=== PATIENT | male | born 1955 | race Two or more races ===

== ENCOUNTER 2018-02-18 21:23 | Emergency (ER) | payer OTHER ==
[~2018-02-18] VITALS: Ht 167.6 cm; Wt 56.7 kg
[~2018-02-18 21:23] MED LIST: CORGARD40 MG PO; KETO10TA2 PO; LEVAQUIN750 MG PO; MEDROLPACK PO; NORFLEX100MG PO; PROVENTIL3 ML/2.5 M IH; TOPROL XL25 M1; ZYNCOF 20-400120 ML PO
== END 2018-02-19 03:54 | disposition home or self-care (01) ==
LOC: ER 21:23
DX: B34.9 Viral infection, unspecified (principal); J11.1 Influenza due to unidentified influenza virus with other respiratory manifestations

== ENCOUNTER 2019-01-11 08:23 | Outpatient (CLI) | payer OTHER | END 2019-01-11 08:25 | disposition home or self-care (01) | LOC: SONOGRAMA 08:23 → MAMO-SONO 11:15 | DX: C18.2 Malignant neoplasm of ascending colon (principal) ==

== ENCOUNTER 2019-01-11 09:23 | Outpatient (CLI) | payer OTHER | END 2019-01-11 10:00 | disposition home or self-care (01) | LOC: NUCLEAR 09:23 | DX: B20 Human immunodeficiency virus [HIV] disease (principal); F52.21 Male erectile disorder; I10 Essential (primary) hypertension; M75.112 Incomplete rotator cuff tear or rupture of left shoulder, not specified as traumatic; G47.00 Insomnia, unspecified; M54.41 Lumbago with sciatica, right side; L20.89 Other atopic dermatitis; A53.9 Syphilis, unspecified; K21.0 Gastro-esophageal reflux disease with esophagitis; K12.39 Other oral mucositis (ulcerative); I70.71 Atherosclerosis of other type of bypass graft(s) of the extremities with intermittent claudication; I87.2 Venous insufficiency (chronic) (peripheral) ==

== ENCOUNTER → 2019-01-19 | Outpatient (CLI) | payer OTHER | END | disposition home or self-care (01) | LOC: NUCLEAR 12-29 08:30 | DX: I20.0 Unstable angina (principal) ==

== ENCOUNTER 2019-03-05 07:25 | Outpatient (CLI) | payer OTHER | END 2019-03-05 07:32 | disposition home or self-care (01) | LOC: TOM 07:25 | DX: K62.1 Rectal polyp (principal) | CPT/HCPCS: 74177; Q9965 ==

== ENCOUNTER 2019-03-12 11:08 | Outpatient (CLI) | payer OTHER | END 2019-03-12 14:27 | disposition home or self-care (01) | LOC: RAD 11:08 | DX: M54.2 Cervicalgia (principal) ==

== ENCOUNTER 2019-07-03 20:59 | Emergency (ER) | payer OTHER ==
[~2019-07-03] VITALS: Ht 175.3 cm; Wt 62.6 kg
[2019-07-04] MEDS ORDERED: LEVAQUIN750 MG PO (09:59)
== END 2019-07-04 10:42 | disposition home or self-care (01) ==
LOC: ER 20:59
DX: J16.8 Pneumonia due to other specified infectious organisms (principal)

== ENCOUNTER 2019-09-17 07:45 | Outpatient (CLI) | payer OTHER | END 2019-09-17 07:47 | disposition home or self-care (01) | LOC: SONOGRAMA 07:45 | DX: R10.13 Epigastric pain (principal) ==

== ENCOUNTER 2019-10-08 22:43 | Emergency (ER) | payer OTHER ==
[~2019-10-08] VITALS: Ht 175.3 cm; Wt 61.2 kg
[2019-10-08] MEDS ORDERED: TESSALON PERLE100 M1 PO (22:57)
[2019-10-08] MEDS ORDERED: PROMETH-CODEIN 65 ML PO (22:57)
[2019-10-08] MEDS ORDERED: ZITHROMAX500 MG PO (22:57)
== END 2019-10-08 23:52 | disposition home or self-care (01) ==
LOC: ER 22:43
DX: J06.9 Acute upper respiratory infection, unspecified (principal)

== ENCOUNTER 2019-12-20 08:56 | Outpatient (CLI) | payer OTHER ==
[~2019-12-20 08:56] MED LIST changes: +PROMETH-CODEIN 65 ML PO; +TESSALON PERLE100 M1 PO; +ZITHROMAX500 MG PO
== END 2019-12-20 08:59 | disposition home or self-care (01) ==
LOC: NUCLEAR 08:56
DX: I87.2 Venous insufficiency (chronic) (peripheral) (principal)

== ENCOUNTER 2020-03-31 11:50 | Emergency (ER) | payer OTHER ==
[~2020-03-31] VITALS: Ht 175.3 cm; Wt 63.5 kg
[2020-03-31] MEDS ORDERED: ORPHENADRINE C100 MG PO (14:36)
== END 2020-03-31 17:09 | disposition home or self-care (01) ==
LOC: ER 11:50
DX: M79.18 Myalgia, other site (principal); M54.5 Low back pain; I10 Essential (primary) hypertension

== ENCOUNTER 2020-05-16 11:53 | Outpatient (CLI) | payer OTHER ==
[~2020-05-16 11:53] MED LIST changes: +ORPHENADRINE C100 MG PO
== END 2020-05-16 12:04 | disposition home or self-care (01) ==
LOC: SONOGRAMA 11:53 → RAD 11:53
PROVIDERS: ATTEND Specialist
DX: M43.04 Spondylolysis, thoracic region (principal); M47.812 Spondylosis without myelopathy or radiculopathy, cervical region; S46.911A Strain of unspecified muscle, fascia and tendon at shoulder and upper arm level, right arm, initial encounter

== ENCOUNTER 2020-05-23 13:11 | Outpatient (CLI) | payer OTHER | END 2020-05-23 13:17 | disposition home or self-care (01) | LOC: MRI 13:11 | PROVIDERS: ATTEND Specialist | DX: M47.22 Other spondylosis with radiculopathy, cervical region (principal); M50.222 Other cervical disc displacement at C5-C6 level | CPT/HCPCS: 72141 ==

== ENCOUNTER 2020-06-11 18:07 | Inpatient (IN) | payer OTHER ==
[~2020-06-11] VITALS: Ht 175.3 cm; Wt 62.6 kg
[2020-06-11] MEDS ORDERED: AMBIEN5 MG (18:22)
[2020-06-11] MEDS ORDERED: BARACLUDE0.5 MG (18:24)
[2020-06-11] MEDS ORDERED: [UNRECOGNIZED DRUG - OTHER] (18:24)
--- NOTE | 2020-06-11 18:34 | NUR ---
PTE REFIERE HEMOGLOBINA EN 6 SE LUCITA S/V Y SE UBICA EN AREA DE OBSERVACION
--- NOTE | 2020-06-11 21:48 | NUR ---
SE RECIBE PTE ALERTA Y ORIENTADO X3, EN FELICIA CON BARANDAS ELEVADAS. SE RECIBE PTE CANALIZA EN MANO JASON AREA GRETCHEN DE EDEMA Y DE ENROJECIMIENTO. SE LE LUCITA TUBOS PILOTOS PARA ORDEN DE TRANSFUNDIR 3 UNIDADES PRBC. LOS CUALES SE ENTREGAN A MR. CORDERO DE BANCO DE SHAUN. SE LE REALIZA EKG IVONE ORDEN MEDICA. PTE FIRMA CONSENTIMIENTO DE TRANSFUSION DE SHAUN. PTE SE MANTIENE BAJO OBSERVACION POR CAMBIOS.
--- NOTE | 2020-06-12 | NUR ---
PT ALERTA Y ORIENTADO X3 ESFERAS SE RECIBE EN FELICIA CON BARANDAS ELEVADAS Y FRENOS COLOCADOS. 0.45NSS AT 150 ML/HRS BAJANDO POR REGULADOR. HEPARIN LOCK ADICIONAL, PATENTE GRETCHEN DE EDEMA Y/O ERITEMA. PENDIENTE A TRANSFUNDIR 3 UNIDADES PRBCS. DOCUMENTO DE CONSENTIMIENTO PARA TRANSFUNDIR SHAUN Y AYAAN DERIVADOS. 100AM- SE LLAMA A LABORATORIO DE PRESBY PARA NAS SEGUIMIENTO A PRBCS ORDENADOS. MS RUFFIN REFIERE NO HAY DISPONIBILIDAD. ANADE EN TURNO 3-11 DE CHAMP LO QUE SE TENIA DISPONIBLE ERA TIPO (O) NO EL COMPONENTE DE CRUCE DE PT: TIPO (A). EL DR HOOK NO AUTORIZA TRANSFUNDIR COMPONENTES ALTERNOS. 130AM- SE LLAMA A BANCO DE SHAUN, SE HABLA CON MS SRINIVASA QUIEN REFIERE TUBOS DE SHAUN Y REQUISIONES SE ENCUENTRAN EN PRESBY, NO SE LIZETTE A PEDIR EL CRUCE TIPO A DEL PT. SUHAIL BERNABE REFIERE TENER DISPONIBLE, IRA SE DEBEN DE REALIZAR TODO EL PROCESO DE REQUISICION Y DARYL TUBOS PILOTOS. 145AM- SE LLAMA A BANCO DE SHA[place] PARA RECOGER TUBOS PILOTOS.
--- NOTE | 2020-06-12 04:43 | NUR ---
PERSONAL DE BANCO DE SHAUN RECOGE REQUISION Y TUBOS DE SHAUN.
--- NOTE | 2020-06-12 07:47 | NUR ---
PACIENTE ALERTA Y ORIENTADO EN AYAAN VICKIE ESFERAS CON BUEN PATRON RESPIRATORIO Y PIEL TIBIA AL TACTO. SE OBSERVA H/L PATENTE GRETCHEN DE EDEMA Y ENROJECIMIENTO BAJANDO UN .45NSS @ 150ML/HR. PENDIENTE CONSULTA CON DR Ernesto ANTOINE. PENDIENTE DISPONIBILIDAD DE 3 UNIDADES DE PRBC'S. SE MANTIENE BAJO OBSERVACION POR CAMBIOS.
--- NOTE | 2020-06-12 08:30 | NUR ---
SE ORIENTA A PACIENTE SOBRE UNIDADES DE PRBC'S DISPONIBLES Y SE PROCEDE A LA CHETAN DE VITALES. PACIENTE REFIERE QUIERE DESAYUNAR ANTES DE COMENZAR LA TRANSFUSION. SE ORIENTA SOBRE EL MISMO. PENDIENTE A COMENZAR LA TRANSFUSION LUEGO DEL DESAYUNO, SE LLAMA [place] AL DPT DE DIETA.
[2020-06-13] MEDS ORDERED: VEMLIDY25 MG (15:51)
[2020-06-17] MEDS ORDERED: PROTONIX40 MG PO (09:29)
== END 2020-06-17 10:43 | disposition home or self-care (01) | DRG 384 ==
LOC: ER 18:07 → MEDI 06-12 09:35 → SEC-K 06-12 09:35 → MEDI 06-12 10:29
PROVIDERS: ADMIT Internal Medicine; ATTEND Internal Medicine
PROC: 30233N1 Transfusion of Nonautologous Red Blood Cells into Peripheral Vein, Percutaneous Approach (ICD-10-PCS; 2020-06-12)
PROC: 0DB68ZX Excision of Stomach, Via Natural or Artificial Opening Endoscopic, Diagnostic (ICD-10-PCS; principal; 2020-06-16)
DX: K25.3 Acute gastric ulcer without hemorrhage or perforation (principal); D62 Acute posthemorrhagic anemia; B20 Human immunodeficiency virus [HIV] disease; K92.0 Hematemesis; I10 Essential (primary) hypertension; R06.02 Shortness of breath; D69.6 Thrombocytopenia, unspecified

== ENCOUNTER → 2020-11-05 | Emergency (ER) | payer OTHER ==
[~2020-11-05] VITALS: Ht 175.3 cm; Wt 63.0 kg
[~2020-11-05] MED LIST changes: +AMBIEN5 MG; +BARACLUDE0.5 MG; +CARAFATE1 GM PO; +PEPCID20 MG PO; +PROTONIX40 MG PO; +VEMLIDY25 MG; +[UNRECOGNIZED DRUG - OTHER]
== END | disposition home or self-care (01) ==
LOC: ER 16:32
DX: K29.70 Gastritis, unspecified, without bleeding (principal); K29.80 Duodenitis without bleeding

== ENCOUNTER 2020-11-19 15:39 | Emergency (ER) | payer OTHER ==
[~2020-11-19] VITALS: Ht 175.3 cm; Wt 63.0 kg
== END 2020-11-19 22:30 | disposition home or self-care (01) ==
LOC: ER 15:39
DX: M54.5 Low back pain (principal); B19.10 Unspecified viral hepatitis B without hepatic coma

== ENCOUNTER 2021-03-24 09:41 | Emergency (ER) | payer OTHER ==
[~2021-03-24] VITALS: Ht 175.3 cm; Wt 62.6 kg
[2021-03-24] MEDS ORDERED: LYRICA150 MG (09:51)
[2021-03-24] MEDS ORDERED: ZOLPIDEM TART1.75 MG (09:51)
[2021-03-24] MEDS ORDERED: SKELAXIN800 MG PO (12:07)
[2021-03-24] MEDS ORDERED: ULTRAM50 MG PO (12:07)
[2021-03-24] MEDS ORDERED: CELEBREX100 MG PO (12:07)
== END 2021-03-24 12:15 | disposition home or self-care (01) ==
LOC: ER 09:41
DX: S33.5XXA Sprain of ligaments of lumbar spine, initial encounter (principal); X50.0XXA Overexertion from strenuous movement or load, initial encounter; Y93.F2 Activity, caregiving, lifting; Y92.017 Garden or yard in single-family (private) house as the place of occurrence of the external cause; Y99.8 Other external cause status

== ENCOUNTER 2021-06-08 16:05 | Emergency (ER) | payer OTHER ==
[~2021-06-08] VITALS: Ht 175.3 cm; Wt 62.6 kg
[~2021-06-08 16:05] MED LIST changes: +CELEBREX100 MG PO; +LYRICA150 MG; +SKELAXIN800 MG PO; +ULTRAM50 MG PO; +ZOLPIDEM TART1.75 MG
== END 2021-06-08 19:54 | disposition home or self-care (01) ==
LOC: ER 16:05
DX: M54.16 Radiculopathy, lumbar region (principal)

== ENCOUNTER 2021-06-19 20:07 | Emergency (ER) | payer OTHER ==
[~2021-06-19] VITALS: Ht 175.3 cm; Wt 60.8 kg
[2021-06-20] MEDS ORDERED: CARAFATE1 GM PO (00:51)
[2021-06-20] MEDS ORDERED: ADULT LOW DOSE81 M1 PO (00:51)
[2021-06-20] MEDS ORDERED: NORFLEX100MG PO (00:52)
== END 2021-06-20 02:07 | disposition home or self-care (01) ==
LOC: ER 20:07 → CPU-OBS 20:53 → ER 06-20 02:07
DX: R07.89 Other chest pain (principal)

== ENCOUNTER 2021-08-24 14:00 | Outpatient (CLI) | payer OTHER ==
[~2021-08-24 14:00] MED LIST changes: +ADULT LOW DOSE81 M1 PO
== END 2021-08-24 14:06 | disposition home or self-care (01) ==
LOC: RAD 14:00
PROVIDERS: ATTEND Orthopaedic Surgery
DX: M62.830 Muscle spasm of back (principal)

== ENCOUNTER 2021-08-31 09:01 | Outpatient (CLI) | payer OTHER | END 2021-08-31 09:09 | disposition home or self-care (01) | LOC: TOM 09:01 | PROVIDERS: ATTEND Orthopaedic Surgery | DX: K40.90 Unilateral inguinal hernia, without obstruction or gangrene, not specified as recurrent (principal); K76.89 Other specified diseases of liver; R29.890 Loss of height; M54.59 Other low back pain; R10.32 Left lower quadrant pain; R16.1 Splenomegaly, not elsewhere classified; M48.8X7 Other specified spondylopathies, lumbosacral region | CPT/HCPCS: 72131; 74177; Q9965 ==

== ENCOUNTER 2021-11-24 07:23 | Outpatient (CLI) | payer OTHER | END 2021-11-24 08:29 | disposition home or self-care (01) | LOC: NUCLEAR 07:23 | DX: C90.00 Multiple myeloma not having achieved remission (principal) | CPT/HCPCS: 78815; A9552 ==

== ENCOUNTER → 2022-03-16 | Emergency (ER) | payer OTHER ==
[~2022-03-16] VITALS: Ht 175.3 cm; Wt 62.6 kg
[~2022-03-16] MED LIST changes: +AMBIEN CR12.5 MG; +B-COMPLEX WIT400 MCG; +CEFDINIR300 MG PO; +CORGARD20 M1 PO; +EMERGEN-C 1,01000 MG; +ENTECAVIR1 MG; +FAMOTIDINE20 MG; +FOLIC ACID1 MG; +GABAPENTIN100 M2; +INTESTINEX680 M1 PO; +SELENIUM200 MC1; +SUCRALFATE1 GM; +TURMERIC 500 M1 EACH
== END | disposition home or self-care (01) ==
LOC: ER 21:33
DX: B34.9 Viral infection, unspecified (principal); D69.6 Thrombocytopenia, unspecified; Z20.822 Contact with and (suspected) exposure to COVID-19; I10 Essential (primary) hypertension

== ENCOUNTER 2022-03-19 17:13 | Emergency (ER) | payer OTHER ==
[~2022-03-19] VITALS: Ht 175.3 cm; Wt 63.0 kg
[~2022-03-19 17:13] MED LIST changes: -AMBIEN CR12.5 MG; -B-COMPLEX WIT400 MCG; -CEFDINIR300 MG PO; -CORGARD20 M1 PO; -EMERGEN-C 1,01000 MG; -ENTECAVIR1 MG; -FAMOTIDINE20 MG; -FOLIC ACID1 MG; -GABAPENTIN100 M2; -INTESTINEX680 M1 PO; -SELENIUM200 MC1; -SUCRALFATE1 GM; -TURMERIC 500 M1 EACH
[2022-03-19] MEDS ORDERED: AMBIEN CR12.5 MG (17:52)
== END 2022-03-19 22:36 | disposition home or self-care (01) ==
LOC: ER 17:13
DX: A90 Dengue fever [classical dengue] (principal)

== ENCOUNTER 2022-03-21 00:55 | Inpatient (IN) | payer OTHER ==
[~2022-03-21] VITALS: Ht 152.4 cm; Wt 62.6 kg
[~2022-03-21 00:55] MED LIST changes: +AMBIEN CR12.5 MG
[2022-03-22] MEDS ORDERED: ENTECAVIR1 MG (08:57)
[2022-03-22] MEDS ORDERED: GABAPENTIN100 M2 (08:58)
[2022-03-22] MEDS ORDERED: SUCRALFATE1 GM (08:58)
[2022-03-22] MEDS ORDERED: EMERGEN-C 1,01000 MG (09:01)
[2022-03-22] MEDS ORDERED: TURMERIC 500 M1 EACH (09:01)
[2022-03-22] MEDS ORDERED: B-COMPLEX WIT400 MCG (09:01)
[2022-03-22] MEDS ORDERED: FOLIC ACID1 MG (09:05)
[2022-03-22] MEDS ORDERED: FAMOTIDINE20 MG (09:05)
[2022-03-22] MEDS ORDERED: SELENIUM200 MC1 (09:05)
[2022-03-26] MEDS ORDERED: INTESTINEX680 M1 PO (12:07)
[2022-03-26] MEDS ORDERED: CORGARD20 M1 PO (12:07)
[2022-03-26] MEDS ORDERED: CEFDINIR300 MG PO (12:07)
[2022-03-26] MEDS ORDERED: PROTONIX40 MG PO (12:07)
== END 2022-03-26 14:06 | disposition home or self-care (01) | DRG 378 ==
LOC: ER 00:55 → ICU 12:02 → MEDI 03-24 21:55
PROVIDERS: ADMIT Internal Medicine; ATTEND Internal Medicine
PROC: B24BZZZ Ultrasonography of Heart with Aorta (ICD-10-PCS; 2022-03-21)
PROC: 4A12X4Z Monitoring of Cardiac Electrical Activity, External Approach (ICD-10-PCS; 2022-03-21)
PROC: 30233N1 Transfusion of Nonautologous Red Blood Cells into Peripheral Vein, Percutaneous Approach (ICD-10-PCS; 2022-03-21)
PROC: 3E0F7GC Introduction of Other Therapeutic Substance into Respiratory Tract, Via Natural or Artificial Opening (ICD-10-PCS; 2022-03-21)
PROC: 8E0ZXY6 Isolation (ICD-10-PCS; 2022-03-22)
PROC: 0DJ08ZZ Inspection of Upper Intestinal Tract, Via Natural or Artificial Opening Endoscopic (ICD-10-PCS; principal; 2022-03-23)
DX: K62.5 Hemorrhage of anus and rectum (principal); B20 Human immunodeficiency virus [HIV] disease; I85.00 Esophageal varices without bleeding; K27.4 Chronic or unspecified peptic ulcer, site unspecified, with hemorrhage; D50.0 Iron deficiency anemia secondary to blood loss (chronic); D69.6 Thrombocytopenia, unspecified; K64.8 Other hemorrhoids

== ENCOUNTER 2022-04-13 13:30 | Outpatient (CLI) | payer OTHER ==
[~2022-04-13 13:30] MED LIST changes: +B-COMPLEX WIT400 MCG; +CEFDINIR300 MG PO; +CORGARD20 M1 PO; +EMERGEN-C 1,01000 MG; +ENTECAVIR1 MG; +FAMOTIDINE20 MG; +FOLIC ACID1 MG; +GABAPENTIN100 M2; +INTESTINEX680 M1 PO; +SELENIUM200 MC1; +SUCRALFATE1 GM; +TURMERIC 500 M1 EACH
== END 2022-04-13 13:37 | disposition home or self-care (01) ==
LOC: TOM 13:30
PROVIDERS: ATTEND Physical Medicine & Rehabilitation
DX: L92.0 Granuloma annulare (principal)

== ENCOUNTER 2022-06-19 22:30 | Inpatient (IN) | payer OTHER ==
[~2022-06-19] VITALS: Ht 175.3 cm; Wt 63.5 kg
[2022-06-22] MEDS ORDERED: FLUCONAZOLE100 MG PO (10:41)
[2022-06-22] MEDS ORDERED: PEPCID AC20 MG PO (10:41)
== END 2022-06-22 11:12 | disposition home or self-care (01) | DRG 378 ==
LOC: ER 22:30 → ICU-2 06-20 13:24 → MEDJ 06-21 14:08
PROVIDERS: ADMIT Internal Medicine; ATTEND Internal Medicine
PROC: 0DB58ZX Excision of Esophagus, Via Natural or Artificial Opening Endoscopic, Diagnostic (ICD-10-PCS; principal; 2022-06-21)
PROC: 0DB78ZX Excision of Stomach, Pylorus, Via Natural or Artificial Opening Endoscopic, Diagnostic (ICD-10-PCS; 2022-06-21)
PROC: 4A12X4Z Monitoring of Cardiac Electrical Activity, External Approach (ICD-10-PCS; 2022-06-21)
DX: K92.1 Melena (principal); B20 Human immunodeficiency virus [HIV] disease; K74.69 Other cirrhosis of liver; K29.60 Other gastritis without bleeding; K92.0 Hematemesis; I86.4 Gastric varices; K27.4 Chronic or unspecified peptic ulcer, site unspecified, with hemorrhage; Z20.822 Contact with and (suspected) exposure to COVID-19; Z86.19 Personal history of other infectious and parasitic diseases; M47.816 Spondylosis without myelopathy or radiculopathy, lumbar region

== ENCOUNTER 2022-07-10 15:33 | Emergency (ER) | payer OTHER ==
[~2022-07-10] VITALS: Ht 175.3 cm; Wt 52.6 kg
[~2022-07-10 15:33] MED LIST changes: +FLUCONAZOLE100 MG PO; +PEPCID AC20 MG PO
== END 2022-07-11 00:20 | disposition home or self-care (01) ==
LOC: ER 15:33
DX: R10.9 Unspecified abdominal pain (principal); K27.9 Peptic ulcer, site unspecified, unspecified as acute or chronic, without hemorrhage or perforation; Z20.822 Contact with and (suspected) exposure to COVID-19

== ENCOUNTER 2022-12-24 23:23 | Emergency (ER) | payer OTHER ==
[~2022-12-24] VITALS: Ht 175.3 cm; Wt 59.0 kg
== END 2022-12-25 02:33 | disposition home or self-care (01) ==
LOC: ER 23:23
DX: K29.70 Gastritis, unspecified, without bleeding (principal); Z88.6 Allergy status to analgesic agent

== ENCOUNTER 2023-01-04 09:45 | Outpatient (CLI) | payer OTHER | END 2023-01-04 09:46 | disposition home or self-care (01) | LOC: NUCLEAR 09:45 | PROVIDERS: ATTEND Thoracic Surgery (Cardiothoracic Vascular Surgery) | DX: I73.9 Peripheral vascular disease, unspecified (principal); I87.2 Venous insufficiency (chronic) (peripheral) ==

== ENCOUNTER 2023-01-21 08:52 | Outpatient (CLI) | payer OTHER | END 2023-01-21 09:01 | disposition home or self-care (01) | LOC: TOM 08:52 | PROVIDERS: ATTEND Internal Medicine Gastroenterology | DX: I86.4 Gastric varices (principal); B18.1 Chronic viral hepatitis B without delta-agent; R10.10 Upper abdominal pain, unspecified; R10.30 Lower abdominal pain, unspecified; B20 Human immunodeficiency virus [HIV] disease | CPT/HCPCS: 74160; Q9965 ==

== ENCOUNTER 2023-07-01 18:27 | Emergency (ER) | payer OTHER ==
[~2023-07-01] VITALS: Ht 175.3 cm; Wt 56.7 kg
== END 2023-07-01 20:28 | disposition home or self-care (01) ==
LOC: ER 18:27
DX: M25.571 Pain in right ankle and joints of right foot (principal); I10 Essential (primary) hypertension; Z88.6 Allergy status to analgesic agent

== ENCOUNTER 2023-11-14 01:07 | Emergency (ER) | payer OTHER ==
[~2023-11-14] VITALS: Ht 170.2 cm; Wt 52.2 kg
[2023-11-14 03:56] LABS: HEMATOCRIT 44.3 % (39.0-48.0); HEMOGLOBIN 15.4 g/dL (13-16.00); MEAN CELL VOLUME 98.3 fL (80.0-100.00); MEAN CORPUSCULAR HEMOGLOBIN 34.2 pg (27.00-32.0); MEAN CORPUSCULAR HGB CONC 34.8 g/dl (32.0-36.0); RED BLOOD COUNT 4.51 M/uL (4.00-6.00); RED CELL DISTRIBUTION WIDTH 16.1 % (11.5-14.5)
[2023-11-14 03:57] LABS: PLATELET COUNT 75 K/uL (150-450)
[2023-11-14] MEDS ORDERED: ZYNCOF 20-400120 ML PO (06:01)
== END 2023-11-14 06:06 ==
LOC: ER 01:07
PROVIDERS: General Practice
DX: J40 Bronchitis, not specified as acute or chronic (principal); I10 Essential (primary) hypertension; Z87.09 Personal history of other diseases of the respiratory system; Z88.6 Allergy status to analgesic agent; Z20.822 Contact with and (suspected) exposure to COVID-19
CPT/HCPCS: 36415; 94640; 96372; 99284; J2930

== ENCOUNTER → 2024-01-05 | Outpatient (CLI) | payer OTHER | END | disposition home or self-care (01) | LOC: SONOGRAMA 12:00 | PROVIDERS: ATTEND Internal Medicine | DX: M25.511 Pain in right shoulder (principal) ==

== ENCOUNTER 2024-06-15 14:18 | Outpatient (CLI) | payer OTHER | END 2024-06-15 14:25 | disposition home or self-care (01) | LOC: TOM 14:18 | PROVIDERS: ATTEND Internal Medicine | DX: J32.0 Chronic maxillary sinusitis (principal) ==

== ENCOUNTER 2024-10-25 19:21 | Emergency (ER) | payer OTHER ==
[~2024-10-25] VITALS: Ht 172.7 cm; Wt 56.7 kg
[2024-10-25] MEDS ORDERED: 0.9 % SODIUM CHLORIDE 1,000 ML IV STA (20:17)
[2024-10-25 21:05] LABS: HEMATOCRIT 38.7 % (39.0-48.0); HEMOGLOBIN 12.8 g/dL (13-16.00); MEAN CORPUSCULAR HEMOGLOBIN 32.7 pg (27.00-32.0); MEAN CORPUSCULAR HGB CONC 33.1 g/dl (32.0-36.0); PLATELET COUNT 165 K/uL (150-450); RED BLOOD COUNT 3.91 M/uL (4.00-6.00); RED CELL DISTRIBUTION WIDTH 17.3 % (11.5-14.5)
[2024-10-25 21:26] LABS: INR 1.08; PROTHROMBIN TIME 11.7 SECONDS (9.0-11.5)
[2024-10-25 21:28] LABS: D DIMER 0.88 MG/L; PARTIAL THROMBOPLASTIN TIME 26.6 SECONDS (22.0-34.0)
[2024-10-25 21:35] LABS: ALBUMIN 3.5 gm/dL (3.4-5.0); BILIRUBIN TOTAL 0.55 mg/dL (0.3-1.2); CALCIUM 8.8 mg/dL (8.5-10.1); CREATININE SERUM 0.84 mg/dL (0.70-1.30); GFR 90.33; GLOBULINA 4.6 G/DL (2.4-3.5); POTASSIUM 4.69 mEq/L (3.5-5.1); TOTAL PROTEIN 8.1 gm/dL (6.4-8.2)
[2024-10-25 23:45] LABS: ABG PH 7.414 (7.35-7.45); ABG pCO2 36.1 mmHg (35-45)
[2024-10-25 23:46] LABS: BASE EXCESS -1.4 mmol/l; BICARBONATE 22.6 mmol/l (23-25); Tco2 23.7 mmol/l
[2024-10-25 23:47] LABS: allen test SATISFACTORY; o2 21 %; puncture site BRADIAL RIGHT
[2024-10-25 23:49] LABS: SaO2 97.2 %
[2024-10-26] MEDS ORDERED: MECLIZINE HCL 25 MG TABLET PO STA (02:56)
[2024-10-26 03:55] VITALS: BP 107/67; O2SAT 100
== END 2024-10-26 03:56 | disposition home or self-care (01) ==
LOC: ER 19:23
PROVIDERS: Emergency Medicine
DX: R06.02 Shortness of breath (principal); I48.91 Unspecified atrial fibrillation; Z88.6 Allergy status to analgesic agent; H81.10 Benign paroxysmal vertigo, unspecified ear; Z20.822 Contact with and (suspected) exposure to COVID-19
CPT/HCPCS: 36415; 71250; 82803; 93005; 96365; 96366; 99284; J7030

== ENCOUNTER 2024-10-27 17:19 | Inpatient (IN) | payer OTHER ==
[~2024-10-27] VITALS: Ht 175.3 cm; Wt 49.9 kg
--- NOTE | 2024-10-27 18:30 | NUR ---
SE RECIBE PTE ALERTA ORIENTADO X3.PTE REFIERE TENER DOLOR DE PECHO DESDE EL NADIR DE CHAMP.PTE REFIERE TENER DIFICULTAD RESPIRATORIA,SE CHETAN EKG Y SE PRESENTA A EL CUAL ORDENA UBICAR EN AREA DE CHEST PAIN.SE CONECTA PTE A MONITOR CARDIACO.
[2024-10-27] MEDS ORDERED: 0.9 % SODIUM CHLORIDE 1,000 ML IV ONE (19:00)
[2024-10-27 19:25] LABS: URINE APPEARANCE Clear; URINE BILIRRUBIN Negative (NEGATIVE); URINE BLOOD Negative; URINE COLOR Dark Yellow; URINE GLUCOSE Negative (NEGATIVE); URINE KETONE Negative (NEGATIVE); URINE LEUKOCYTE Negative; URINE NITRATE Negative; URINE PROTEIN Trace (NEGATIVE); URINE UROBILINOGEN 0.2 E.U./dl
[2024-10-27 19:28] LABS: HEMATOCRIT 37.1 % (39.0-48.0); HEMOGLOBIN 12.1 g/dL (13-16.00); MEAN CELL VOLUME 98.7 fL (80.0-100.00); MEAN CORPUSCULAR HEMOGLOBIN 32.3 pg (27.00-32.0); MEAN CORPUSCULAR HGB CONC 32.7 g/dl (32.0-36.0); PLATELET COUNT 157 K/uL (150-450); RED BLOOD COUNT 3.76 M/uL (4.00-6.00); RED CELL DISTRIBUTION WIDTH 16.4 % (11.5-14.5)
[2024-10-27 19:28] LABS: URINE BACTERIA 457.3 uL (0.0-1933); URINE EPITHELIAL CELLS 2.4 uL (0.0-38.8); URINE RBC 13.7 uL (0.0-20.8); URINE WBC 3.4 uL (0.0-23.2)
[2024-10-27 19:29] LABS: URINE CAST 1.37 uL (0.0-1.40)
[2024-10-27] MEDS ORDERED: DILTIAZEM HCL 25 MG/5 ML VIAL IV STA (19:29)
--- NOTE | 2024-10-27 19:35 | NUR ---
SE ORIENTA A PACIENTE SOBRE TX MEDICO, REFIERE ENTENDER. SE REALIZAN MUESTRAS DE LABORATORIO BAJO MEDIDAS ASEPTICAS. SE ADMINISTRAN MEDICAMENTOS IVONE ORDEN MEDICA. SE COORDINA KRISTI X. SE NOTIFICA ABG A , PACIENTE REHUSA ABG. SE NOTIFICA A . SE BIGG EN CAMA CON BARANDAS ELEVADAS POR SEGURIDAD Y SE MANTIENE EN OBSERVACION POR CAMBIOS.
[2024-10-27 19:36] LABS: INR 1.14; PARTIAL THROMBOPLASTIN TIME 26.3 SECONDS (22.0-34.0); PROTHROMBIN TIME 12.3 SECONDS (9.0-11.5)
[2024-10-27 19:41] LABS: ALBUMIN 3.4 gm/dL (3.4-5.0); BILIRUBIN TOTAL 0.87 mg/dL (0.3-1.2); CREATININE SERUM 1.03 mg/dL (0.70-1.30); GFR 71.39; GLOBULINA 4.1 G/DL (2.4-3.5); POTASSIUM 4.33 mEq/L (3.5-5.1); TOTAL PROTEIN 7.5 gm/dL (6.4-8.2)
[2024-10-27] MEDS ORDERED: FAMOTIDINE/PF 20 MG in 0.9 % SODIUM CHLORIDE 100 ML IV SCH (20:42)
[2024-10-27] MEDS ORDERED: APIXABAN 5 MG TABLET PO SCH (20:49)
[2024-10-27] MEDS ORDERED: METOPROLOL TARTRATE 50 MG TABLET PO SCH (21:00)
[2024-10-27] MEDS ORDERED: 0.9 % SODIUM CHLORIDE 1,000 ML IV SCH (21:00)
[2024-10-27] MEDS ORDERED: ENOXAPARIN SODIUM 80 MG/0.8 ML SYRINGE SUBCUTANEO SCH (21:00)
[2024-10-27] MEDS ORDERED: DILTIAZEM HCL 125 MG in 0.9 % SODIUM CHLORIDE 100 ML IV SCH (21:15)
[2024-10-27 23:56] VITALS: BP 121/68; O2SAT 98
[2024-10-28] VITALS (8 sets, daily range): BP systolic 83–121; BP diastolic 61–68; O2SAT 91–98
[2024-10-29] VITALS (7 sets, daily range): BP systolic 101–104; BP diastolic 58–71; O2SAT 96–99
[2024-10-29] MEDS ORDERED: METOPROLOL TARTRATE 25 MG TABLET PO SCH (13:11)
[2024-10-29] MEDS ORDERED: VITAMIN B COMPLEX/LYSINE 15 ML BLIST.PACK PO SCH (17:00)
[2024-10-29] MEDS ORDERED: VANCOMYCIN HCL 1,000 MG VIAL IV ONE (20:00)
[2024-10-29] MEDS ORDERED: ACETAMINOPHEN 500 MG GEL..CAP PO PRN (20:15)
[2024-10-30] VITALS (9 sets, daily range): BP systolic 87–104; BP diastolic 54–70; O2SAT 88–100
[2024-10-30 14:12] LABS: HEMATOCRIT 38.5 % (39.0-48.0); MEAN CELL VOLUME 97.7 fL (80.0-100.00); MEAN CORPUSCULAR HEMOGLOBIN 32.9 pg (27.00-32.0); MEAN CORPUSCULAR HGB CONC 33.7 g/dl (32.0-36.0); PLATELET COUNT 152 K/uL (150-450); RED BLOOD COUNT 3.94 M/uL (4.00-6.00); RED CELL DISTRIBUTION WIDTH 16.6 % (11.5-14.5)
[2024-10-30 14:28] LABS: INR 1.15; PARTIAL THROMBOPLASTIN TIME 26.7 SECONDS (22.0-34.0); PROTHROMBIN TIME 12.4 SECONDS (9.0-11.5)
[2024-10-30 14:36] LABS: ALBUMIN 3.3 gm/dL (3.4-5.0); BILIRUBIN TOTAL 0.53 mg/dL (0.3-1.2); CREATININE SERUM 0.7 mg/dL (0.70-1.30); GFR 111.49; GLOBULINA 4.1 G/DL (2.4-3.5); PHOSPHOROUS 2.1 mg/dL (2.5-4.9); POTASSIUM 4.98 mEq/L (3.5-5.1); TOTAL PROTEIN 7.4 gm/dL (6.4-8.2)
[2024-10-30] MEDS ORDERED: POTASSIUM PHOS,M-BASIC-D-BASIC 15 MM in 0.9 % SODIUM CHLORIDE 250 ML IV ONE (17:30)
[2024-10-30] MEDS ORDERED: VANCOMYCIN HCL 5 MG/ML REDILUIDO IV SCH (21:00)
[2024-10-31] VITALS (7 sets, daily range): BP systolic 98–110; BP diastolic 55–66; O2SAT 90–100
[2024-10-31] MEDS ORDERED: METOPROLOL TARTRATE 25 MG TABLET PO SCH (13:00)
[2024-10-31] MEDS ORDERED: DILTIAZEM HCL 30 MG TABLET PO SCH (23:14)
[2024-11-01] VITALS (8 sets, daily range): BP systolic 99–117; BP diastolic 61–74; O2SAT 84–100
[2024-11-01 06:38] LABS: HEMATOCRIT 32.1 % (39.0-48.0); HEMOGLOBIN 10.9 g/dL (13-16.00); MEAN CELL VOLUME 97.6 fL (80.0-100.00); MEAN CORPUSCULAR HEMOGLOBIN 33.1 pg (27.00-32.0); MEAN CORPUSCULAR HGB CONC 33.9 g/dl (32.0-36.0); RED BLOOD COUNT 3.29 M/uL (4.00-6.00); RED CELL DISTRIBUTION WIDTH 16.2 % (11.5-14.5)
[2024-11-01 07:10] LABS: ALBUMIN 2.9 gm/dL (3.4-5.0); BILIRUBIN TOTAL 0.55 mg/dL (0.3-1.2); CALCIUM 8.6 mg/dL (8.5-10.1); CREATININE SERUM 0.78 mg/dL (0.70-1.30); GFR 98.4; GLOBULINA 3.3 G/DL (2.4-3.5); POTASSIUM 4.18 mEq/L (3.5-5.1); TOTAL PROTEIN 6.2 gm/dL (6.4-8.2)
[2024-11-01 07:19] LABS: PLATELET COUNT 123 K/uL (150-450)
[2024-11-01] MEDS ORDERED: AMIODARONE HCL 200 MG TABLET PO SCH (12:00)
[2024-11-01] MEDS ORDERED: DILTIAZEM HCL 30 MG TABLET PO SCH (18:00)
[2024-11-01] MEDS ORDERED: ELIQUIS5 MG PO (18:45)
[2024-11-01] MEDS ORDERED: AMIODARONE HCL200 MG PO (18:45)
[2024-11-01] MEDS ORDERED: DILTIAZEM HCL30 MG PO (18:46)
[2024-11-01] MEDS ORDERED: AVIDOXY100 MG PO (18:46)
[2024-11-01] MEDS ORDERED: VANCOMYCIN HCL 1,000 MG VIAL IV SCH (21:00)
[2024-11-02] MEDS ORDERED: DILTIAZEM HCL 30 MG TABLET PO SCH (17:00)
== END 2024-11-01 19:57 | disposition home or self-care (01) | DRG 309 ==
LOC: ER 17:21 → MEDI 22:26 → SEC-K 22:26 → MEDI 23:33
PROVIDERS: General Practice; ADMIT Internal Medicine; ATTEND Internal Medicine
PROC: B24BZZ3 Ultrasonography of Heart with Aorta, Intravascular (ICD-10-PCS; 2024-10-27)
PROC: 4A12X4Z Monitoring of Cardiac Electrical Activity, External Approach (ICD-10-PCS; principal; 2024-10-28)
DX: I48.20 Chronic atrial fibrillation, unspecified (principal); B20 Human immunodeficiency virus [HIV] disease; F32.9 Major depressive disorder, single episode, unspecified; I34.0 Nonrheumatic mitral (valve) insufficiency; I34.1 Nonrheumatic mitral (valve) prolapse; I80.8 Phlebitis and thrombophlebitis of other sites; I11.9 Hypertensive heart disease without heart failure; K74.60 Unspecified cirrhosis of liver

== ENCOUNTER 2025-01-30 09:40 | Outpatient (CLI) | payer OTHER ==
[~2025-01-30 09:40] MED LIST changes: +AMIODARONE HCL200 MG PO; +AVIDOXY100 MG PO; +DILTIAZEM HCL30 MG PO; +ELIQUIS5 MG PO
== END 2025-01-30 09:47 | disposition home or self-care (01) ==
LOC: TOM 09:40
PROVIDERS: ATTEND Internal Medicine Gastroenterology
DX: I86.4 Gastric varices (principal); B20 Human immunodeficiency virus [HIV] disease; B18.1 Chronic viral hepatitis B without delta-agent
CPT/HCPCS: 74178; Q9965

== ENCOUNTER 2025-03-04 18:43 | Inpatient (IN) | payer OTHER ==
[~2025-03-04] VITALS: Ht 175.3 cm; Wt 49.9 kg
[2025-03-04 20:31] LABS: HEMATOCRIT 41.5 % (39.0-48.0); MEAN CELL VOLUME 97.1 fL (80.0-100.00); MEAN CORPUSCULAR HEMOGLOBIN 32.8 pg (27.00-32.0); MEAN CORPUSCULAR HGB CONC 33.8 g/dl (32.0-36.0); RED BLOOD COUNT 4.27 M/uL (4.00-6.00); RED CELL DISTRIBUTION WIDTH 16.9 % (11.5-14.5)
[2025-03-04 20:54] LABS: PLATELET COUNT 115 K/uL (150-450)
[2025-03-04 21:04] LABS: ALBUMIN 3.3 gm/dL (3.4-5.0); BILIRUBIN TOTAL 1.79 mg/dL (0.3-1.2); CALCIUM 8.6 mg/dL (8.5-10.1); CREATININE SERUM 0.8 mg/dL (0.70-1.30); GFR 95.29; GLOBULINA 4.7 G/DL (2.4-3.5)
[2025-03-04 21:10] LABS: COVID-19 AG NEGATIVE (NEGATIVE)
[2025-03-04 21:11] LABS: INFLUENZA A AG NEGATIVE (NEGATIVE)
[2025-03-04] MEDS ORDERED: PANTOPRAZOLE SODIUM 40 MG/VIAL VIAL IV SCH (22:52)
[2025-03-04] MEDS ORDERED: AZITHROMYCIN 500 MG in DEXTROSE 5 % IN WATER 250 ML IV SCH (22:52)
[2025-03-04] MEDS ORDERED: GUAIFEN/DEXTROMETHORPHAN/PE 10 ML BLIST.PACK PO SCH (22:53)
[2025-03-04] MEDS ORDERED: ACETAMINOPHEN 500 MG GEL..CAP PO PRN (23:00)
[2025-03-04] MEDS ORDERED: METHYLPREDNISOLONE SOD SUCC 125 MG VIAL IV ONE (23:00)
[2025-03-04] MEDS ORDERED: 0.9 % SODIUM CHLORIDE 1,000 ML IV SCH (23:00)
[2025-03-05] MEDS ORDERED: PIPERACILLIN/TAZOBACTAM SODIUM 3.375 GM in DEXTROSE 5 % IN WATER 100 ML IV SCH
[2025-03-05] MEDS ORDERED: IPRATROPIUM BROMIDE 0.5 MG/2.5 ML AMPUL.NEB IH SCH (01:00)
[2025-03-05] MEDS ORDERED: PIPERACILLIN/TAZOBACTAM SODIUM 3.375 GM VIAL IV ONE (05:13)
[2025-03-05] MEDS ORDERED: METHYLPREDNISOLONE SOD SUCC 125 MG VIAL ONE (05:13)
[2025-03-05 07:28] LABS: INR 1.1; PARTIAL THROMBOPLASTIN TIME 28.5 SECONDS (22.0-34.0)
[2025-03-05 07:48] VITALS: BP 120/62; O2SAT 95
[2025-03-05 08:07] LABS: PROTHROMBIN TIME 11.9 SECONDS (9.0-11.5)
[2025-03-05] MEDS ORDERED: AZITHROMYCIN 500 MG VIAL IV ONE (08:48)
[2025-03-05] MEDS ORDERED: GUAIFEN/DEXTROMETHORPHAN/PE 10 ML BLIST.PACK PO ONE (08:48)
[2025-03-05 09:00] LABS: PH,URINE 7.5 (5.0-8.0); URINE APPEARANCE Clear; URINE BILIRRUBIN Negative (NEGATIVE); URINE BLOOD NHT; URINE COLOR Dark Yellow; URINE GLUCOSE Negative (NEGATIVE); URINE KETONE Negative (NEGATIVE); URINE LEUKOCYTE Negative; URINE NITRATE Negative; URINE PROTEIN Trace (NEGATIVE)
[2025-03-05] MEDS ORDERED: AMIODARONE HCL 200 MG TABLET PO SCH (09:00)
[2025-03-05 09:04] LABS: URINE RBC 80.7 uL (0.0-20.8)
[2025-03-05 09:54] VITALS: BP 137/85; O2SAT 97
[2025-03-05 09:58] LABS: URINE BACTERIA 2.4 uL (0.0-1933); URINE EPITHELIAL CELLS 0.7 uL (0.0-38.8)
[2025-03-05] MEDS ORDERED: FF) DOLUTEGRAVIR/RILPIVIRINE TABLET PO SCH (17:00)
[2025-03-05] MEDS ORDERED: DOXYCYCLINE HYCLATE 100 MG CAPSULE PO SCH (17:00)
[2025-03-05] MEDS ORDERED: CEFEPIME HCL 2,000 MG VIAL IV SCH (17:00)
[2025-03-05 17:39] VITALS: O2SAT 96
[2025-03-05 17:40] VITALS: BP 126/74; O2SAT 97
[2025-03-05 21:28] VITALS: O2SAT 90
[2025-03-06] VITALS (8 sets, daily range): BP systolic 107–142; BP diastolic 69–70; O2SAT 90–98
[2025-03-06] MEDS ORDERED: AMIODARONE HCL 200 MG TABLET PO SCH (09:00)
[2025-03-06 10:30] LABS: HEMATOCRIT 42.5 % (39.0-48.0); HEMOGLOBIN 14.6 g/dL (13-16.00); MEAN CELL VOLUME 95.8 fL (80.0-100.00); MEAN CORPUSCULAR HEMOGLOBIN 32.9 pg (27.00-32.0); MEAN CORPUSCULAR HGB CONC 34.4 g/dl (32.0-36.0); RED BLOOD COUNT 4.43 M/uL (4.00-6.00); RED CELL DISTRIBUTION WIDTH 16.6 % (11.5-14.5)
[2025-03-06 10:52] LABS: PLATELET COUNT 120 K/uL (150-450)
[2025-03-06] MEDS ORDERED: LOPERAMIDE HCL 2 MG CAPSULE PO PRN (12:45)
[2025-03-06] MEDS ORDERED: ENTECAVIR 1 MG PO SCH (21:00)
[2025-03-07] VITALS (8 sets, daily range): BP systolic 122–158; BP diastolic 70–78; O2SAT 90–97
[2025-03-07] MEDS ORDERED: ONDANSETRON HCL 4 MG in DEXTROSE 5 % IN WATER 50 ML IV PRN (13:45)
[2025-03-07] MEDS ORDERED: TUBERCULIN,PURIF.PROT.DERIV. 10 SKIN.TEST SKIN.TEST ID NR (16:15)
[2025-03-07 18:15] LABS: PH,URINE 5.5 (5.0-8.0); URINE APPEARANCE Clear; URINE BILIRRUBIN Negative (NEGATIVE); URINE BLOOD Negative; URINE COLOR Dark Yellow; URINE GLUCOSE Negative (NEGATIVE); URINE KETONE Negative (NEGATIVE); URINE LEUKOCYTE Negative; URINE NITRATE Negative; URINE PROTEIN Trace (NEGATIVE); URINE UROBILINOGEN 0.2 E.U./dl
[2025-03-07 18:19] LABS: URINE BACTERIA 85.6 uL (0.0-1933); URINE EPITHELIAL CELLS 3.1 uL (0.0-38.8); URINE RBC 11.4 uL (0.0-20.8); URINE WBC 6.6 uL (0.0-23.2)
[2025-03-07 18:20] LABS: URINE CAST 0.14 uL (0.0-1.40)
[2025-03-08] VITALS (7 sets, daily range): BP systolic 106–130; BP diastolic 55–74; O2SAT 90–98
[2025-03-08 07:11] LABS: HEMATOCRIT 38.1 % (39.0-48.0); HEMOGLOBIN 13.5 g/dL (13-16.00); MEAN CELL VOLUME 95.3 fL (80.0-100.00); MEAN CORPUSCULAR HEMOGLOBIN 33.7 pg (27.00-32.0); MEAN CORPUSCULAR HGB CONC 35.4 g/dl (32.0-36.0); RED CELL DISTRIBUTION WIDTH 15.8 % (11.5-14.5)
[2025-03-08 07:20] LABS: ALBUMIN 2.6 gm/dL (3.4-5.0); BILIRUBIN TOTAL 1.3 mg/dL (0.3-1.2); CALCIUM 7.9 mg/dL (8.5-10.1); CREATININE SERUM 0.47 mg/dL (0.70-1.30); GFR 176.05; GLOBULINA 3.9 G/DL (2.4-3.5); POTASSIUM 4.28 mEq/L (3.5-5.1); TOTAL PROTEIN 6.5 gm/dL (6.4-8.2)
[2025-03-08 09:07] LABS: PLATELET COUNT 103 K/uL (150-450)
[2025-03-09 02:38] VITALS: BP 125/71; O2SAT 91
[2025-03-09 10:06] VITALS: BP 120/72; O2SAT 99
[2025-03-09 18:21] VITALS: BP 121/74; O2SAT 95
[2025-03-10 04:01] VITALS: BP 125/70; O2SAT 93
[2025-03-10 09:19] VITALS: BP 156/81; O2SAT 98
== END 2025-03-10 15:32 | disposition home or self-care (01) | DRG 975 ==
LOC: ER 18:44 → SEC-K 22:55 → MEDJ 22:55 → SEC-K 03-05 05:18 → MEDJ 03-05 05:19
PROVIDERS: General Practice; ADMIT Internal Medicine; ATTEND Internal Medicine
PROC: BB24ZZZ Computerized Tomography (CT Scan) of Bilateral Lungs (ICD-10-PCS; principal; 2025-03-04)
PROC: 4A12X4Z Monitoring of Cardiac Electrical Activity, External Approach (ICD-10-PCS; 2025-03-05)
PROC: 3E0F7GC Introduction of Other Therapeutic Substance into Respiratory Tract, Via Natural or Artificial Opening (ICD-10-PCS; 2025-03-07)
DX: J18.9 Pneumonia, unspecified organism (principal); B19.10 Unspecified viral hepatitis B without hepatic coma; B20 Human immunodeficiency virus [HIV] disease; R65.10 Systemic inflammatory response syndrome (SIRS) of non-infectious origin without acute organ dysfunction; I48.20 Chronic atrial fibrillation, unspecified; D69.6 Thrombocytopenia, unspecified; J06.9 Acute upper respiratory infection, unspecified; I10 Essential (primary) hypertension; R09.02 Hypoxemia; B19.20 Unspecified viral hepatitis C without hepatic coma

== ENCOUNTER → 2025-05-18 | Emergency (ER) | payer OTHER ==
[~2025-05-18] VITALS: Ht 175.3 cm; Wt 49.9 kg
[~2025-05-18] MED LIST changes: +CEFTRIAXONE SODIUM 1,000 MG VIAL IM STA; +CEFTRIAXONE SODIUM 1,000 MG VIAL ONE; +DIPHTH,PERTUSS(ACELL),TET VAC 0.5 ML SYRINGE IM ONE; +TETANUS & DIPHTHERIA TOX,ADULT 0.5 ML VIAL IM STA
== END | disposition home or self-care (01) ==
LOC: ER 14:25
DX: S60.571A Other superficial bite of hand of right hand, initial encounter (principal); W55.01XA Bitten by cat, initial encounter; Y93.89 Activity, other specified; Y92.89 Other specified places as the place of occurrence of the external cause; Z88.6 Allergy status to analgesic agent
CPT/HCPCS: 90471; 90714; 96372; 99282; J0696; J1670

== ENCOUNTER → 2025-06-07 | Outpatient (CLI) | payer OTHER ==
[~2025-06-07] MED LIST changes: -CEFTRIAXONE SODIUM 1,000 MG VIAL IM STA; -CEFTRIAXONE SODIUM 1,000 MG VIAL ONE; -DIPHTH,PERTUSS(ACELL),TET VAC 0.5 ML SYRINGE IM ONE; -TETANUS & DIPHTHERIA TOX,ADULT 0.5 ML VIAL IM STA
== END | disposition home or self-care (01) ==
LOC: TOM 13:58
PROVIDERS: ATTEND Internal Medicine Pulmonary Disease
DX: R06.02 Shortness of breath (principal); B20 Human immunodeficiency virus [HIV] disease

== ENCOUNTER 2025-07-14 13:12 | Emergency (ER) | payer OTHER ==
[~2025-07-14] VITALS: Ht 175.3 cm; Wt 54.4 kg
[2025-07-14] MEDS ORDERED: 0.9 % SODIUM CHLORIDE 1,000 ML IV SCH (14:00)
[2025-07-14 15:09] LABS: BASO % 0.4 % (0.1-1.2); EOS # 0.02 (0.04-0.54); EOS % 0.3 % (0.7-7.0); LYMPH # 0.83 (1.18-3.74); LYMPH % 11.3 % (19.3-53.1); MEAN PLATELET VOLUME 10.00 fl (9.4-12.4); MONO # 1.13 (0.24-0.82); NEUT # 5.31 (1.56-6.13); NEUT % 72.2 % (34.0-71.1); RED CELL DISTRIBUTION WIDTH 14.6 % (11.6-14.4)
[2025-07-14 15:32] LABS: BUN CREA RATIO 16.0 (7.0-25.0); CREATININE SERUM 0.63 mg/dL (0.70-1.30); GFR 125.54; GLUCOSE FASTING 119.0 mg/dL (65-100); OSMOLALITY SERUM 276.0 MOSM/KG (275-295)
[2025-07-14 15:34] LABS: LYMPHOCYTE MAN 9.0 %; MONO % 15.4 % (4.7-12.5); MONOCYTE MAN 12.0 %; NEUTROPHILS MAN 79.0 %
[2025-07-14 15:46] LABS: URINE APPEARANCE Clear; URINE BILIRRUBIN Negative (NEGATIVE); URINE BLOOD Negative; URINE COLOR Dark Yellow; URINE GLUCOSE Negative (NEGATIVE); URINE KETONE Trace (NEGATIVE); URINE LEUKOCYTE Negative; URINE NITRATE Negative; URINE PROTEIN Trace (NEGATIVE); URINE UROBILINOGEN 1.0 E.U./dl
[2025-07-14 15:49] LABS: URINE BACTERIA 8.4 uL (0.0-1933); URINE EPITHELIAL CELLS 1.9 uL (0.0-38.8); URINE RBC 14.0 uL (0.0-20.8); URINE WBC 3.9 uL (0.0-23.2)
[2025-07-14 15:53] LABS: URINE CAST 0.14 uL (0.0-1.40)
[2025-07-14] MEDS ORDERED: MAG HYDROX/ALUMINUM HYD/SIMETH 30 ML BLIST.PACK PO ONE (19:30)
[2025-07-14] MEDS ORDERED: METRONIDAZOLE/SODIUM CHLORIDE 500 MG/100 ML PIGGYBACK IV ONE (19:30)
[2025-07-14] MEDS ORDERED: FAMOTIDINE/PF 20 MG/2 ML VIAL IV PUSH ONE (19:30)
[2025-07-14] MEDS ORDERED: LOPERAMIDE HCL 2 MG CAPSULE PO ONE (19:30)
== END 2025-07-14 20:53 | disposition home or self-care (01) ==
LOC: ER 13:31
PROVIDERS: Emergency Medicine
DX: K52.89 Other specified noninfective gastroenteritis and colitis (principal); K73.8 Other chronic hepatitis, not elsewhere classified; I10 Essential (primary) hypertension; Z88.6 Allergy status to analgesic agent
CPT/HCPCS: 36415; 96365; 96366; 99282; J7030

== ENCOUNTER 2025-09-21 13:30 | Inpatient (IN) | payer OTHER ==
[~2025-09-21] VITALS: Ht 175.3 cm; Wt 52.2 kg
[2025-09-21] MEDS ORDERED: 0.9 % SODIUM CHLORIDE 500 ML IV STA (15:35)
[2025-09-21] MEDS ORDERED: PANTOPRAZOLE SODIUM 40 MG/VIAL VIAL IV PUSH STA (15:36)
[2025-09-21] MEDS ORDERED: ONDANSETRON HCL 2 MG/ML VIAL IV STA (15:36)
[2025-09-21 16:04] LABS: BASO % 0.3 % (0.1-1.2); EOS # 0.00 (0.04-0.54); EOS % 0.0 % (0.7-7.0); LYMPH # 1.59 (1.18-3.74); LYMPH % 11.8 % (19.3-53.1); MEAN PLATELET VOLUME 9.10 fl (9.4-12.4); MONO # 1.85 (0.24-0.82); NEUT # 9.90 (1.56-6.13); NEUT % 73.5 % (34.0-71.1); RED CELL DISTRIBUTION WIDTH 15.5 % (11.6-14.4)
[2025-09-21 16:14] LABS: MONO % 13.7 % (4.7-12.5)
[2025-09-21 16:48] LABS: INR 1.14
[2025-09-21 16:57] LABS: ALT/SGPT 58.0 U/L (12-78); AST/SGOT 46.0 U/L (15-37); BILIRUBIN TOTAL 0.98 mg/dL (0.3-1.2); BUN CREA RATIO 64.0 (7.0-25.0); CREATININE SERUM 0.59 mg/dL (0.70-1.30); GFR 135.41; GLOBULINA 4.0 G/DL (2.4-3.5); GLUCOSE FASTING 115.0 mg/dL (65-100); OSMOLALITY SERUM 286.0 MOSM/KG (275-295)
[2025-09-21 22:57] LABS: COVID-19 AG NEGATIVE (NEGATIVE)
[2025-09-21] MEDS ORDERED: CIPROFLOXACIN IN 5 % DEXTROSE 200 ML IV ONE (23:00)
[2025-09-22] MEDS ORDERED: 0.9 % SODIUM CHLORIDE 1,000 ML IV SCH (00:45)
[2025-09-22] MEDS ORDERED: ONDANSETRON HCL 4 MG in 0.9 % SODIUM CHLORIDE 50 ML IV PRN (00:45)
[2025-09-22] MEDS ORDERED: ACETAMINOPHEN 325 MG TABLET PO PRN (00:45)
[2025-09-22 03:45] VITALS: BP 129/66; O2SAT 99
[2025-09-22 07:30] VITALS: BP 102/64; O2SAT 98
[2025-09-22] MEDS ORDERED: METOPROLOL SUCCINATE 25 MG TAB.SR.24H PO SCH (09:00)
[2025-09-22] MEDS ORDERED: PANTOPRAZOLE SODIUM 40 MG/VIAL VIAL IV SCH (09:00)
[2025-09-22] MEDS ORDERED: CIPROFLOXACIN IN 5 % DEXTROSE 200 ML IV SCH (09:00)
[2025-09-22 12:25] LABS: FECAL LEUKOCYTES POSITIVE (NEGATIVE); ob POSITIVE (NEGATIVE)
[2025-09-22] MEDS ORDERED: VANCOMYCIN HCL 125 MG CAPSULE PO SCH (14:00)
[2025-09-22 16:00] VITALS: BP 111/69; O2SAT 99
[2025-09-22] MEDS ORDERED: CEFTRIAXONE SODIUM 2,000 MG in 0.9 % SODIUM CHLORIDE 100 ML IV SCH (17:00)
[2025-09-22] MEDS ORDERED: AMIODARONE HCL 200 MG TABLET PO SCH ×2 (21:00)
[2025-09-22] MEDS ORDERED: ZOLPIDEM TARTRATE 5 MG TABLET PO SCH (21:00)
[2025-09-23] VITALS: BP 104/67; O2SAT 97
[2025-09-23 09:18] VITALS: BP 122/65; O2SAT 98
[2025-09-23 15:58] VITALS: BP 107/58; O2SAT 98
[2025-09-23 17:31] LABS: URINE APPEARANCE Clear; URINE BILIRRUBIN Negative (NEGATIVE); URINE BLOOD Negative; URINE COLOR Dark Yellow; URINE GLUCOSE Negative (NEGATIVE); URINE KETONE Negative (NEGATIVE); URINE LEUKOCYTE Negative; URINE NITRATE Negative; URINE PROTEIN Negative (NEGATIVE); URINE UROBILINOGEN 0.2 E.U./dl
[2025-09-23 17:34] LABS: URINE BACTERIA 23.9 uL (0.0-1933); URINE CAST 1.61 uL (0.0-1.40)
[2025-09-23 17:45] LABS: URINE EPITHELIAL CELLS 0.1 uL (0.0-38.8); URINE RBC 1.0 uL (0.0-20.8); URINE WBC 1.5 uL (0.0-23.2)
[2025-09-23] MEDS ORDERED: LACTOBACILLUS ACIDOPHILUS 1 CAP CAP PO NR (18:00)
[2025-09-23] MEDS ORDERED: AMIODARONE HCL 200 MG TABLET PO SCH (21:00)
[2025-09-24 00:30] VITALS: BP 128/84; O2SAT 98
[2025-09-24] MEDS ORDERED: LACTOBACILLUS ACIDOPHILUS 1 CAP CAP PO SCH (01:00)
[2025-09-24 06:36] LABS: BASO % 0.2 % (0.1-1.2); EOS # 0.03 (0.04-0.54); EOS % 0.6 % (0.7-7.0); LYMPH # 0.79 (1.18-3.74); LYMPH % 17.0 % (19.3-53.1); MEAN PLATELET VOLUME 9.60 fl (9.4-12.4); MONO # 0.72 (0.24-0.82); NEUT # 3.08 (1.56-6.13); NEUT % 66.3 % (34.0-71.1); RED CELL DISTRIBUTION WIDTH 15.7 % (11.6-14.4)
[2025-09-24 06:47] LABS: MONO % 15.5 % (4.7-12.5)
[2025-09-24 06:58] LABS: BUN CREA RATIO 16.0 (7.0-25.0); CREATININE SERUM 0.63 mg/dL (0.70-1.30); GFR 125.54; GLUCOSE FASTING 99.0 mg/dL (65-100); OSMOLALITY SERUM 288.0 MOSM/KG (275-295)
[2025-09-24 08:25] VITALS: BP 118/66; O2SAT 98
[2025-09-24 17:10] VITALS: BP 101/62; O2SAT 99
[2025-09-25 00:13] VITALS: BP 134/83; O2SAT 98
[2025-09-25 06:24] LABS: BASO % 0.3 % (0.1-1.2); EOS # 0.05 (0.04-0.54); EOS % 1.4 % (0.7-7.0); LYMPH # 0.90 (1.18-3.74); LYMPH % 24.4 % (19.3-53.1); MEAN PLATELET VOLUME 9.70 fl (9.4-12.4); MONO # 0.69 (0.24-0.82); NEUT # 2.02 (1.56-6.13); NEUT % 54.7 % (34.0-71.1); RED CELL DISTRIBUTION WIDTH 16.1 % (11.6-14.4)
[2025-09-25 06:41] LABS: MONO % 18.7 % (4.7-12.5)
[2025-09-25 08:31] VITALS: BP 101/45; O2SAT 96
[2025-09-25] MEDS ORDERED: LOPERAMIDE HCL 2 MG CAPSULE PO SCH (12:54)
[2025-09-26 00:30] VITALS: BP 132/76; O2SAT 95
[2025-09-26 08:01] VITALS: BP 105/64; O2SAT 96
== END 2025-09-26 17:23 | disposition home or self-care (01) | DRG 378 ==
LOC: ER 13:30 → MEDI 09-22 01:07 → SURG 09-22 01:07
PROVIDERS: General Practice; ADMIT Internal Medicine; ATTEND Internal Medicine
PROC: BW21YZZ Computerized Tomography (CT Scan) of Abdomen and Pelvis using Other Contrast (ICD-10-PCS; principal; 2025-09-21)
DX: K62.5 Hemorrhage of anus and rectum (principal); B20 Human immunodeficiency virus [HIV] disease; D69.3 Immune thrombocytopenic purpura; K52.9 Noninfective gastroenteritis and colitis, unspecified; J32.0 Chronic maxillary sinusitis